=== PATIENT | female | born 1995 | race Caucasian/White ===

== ENCOUNTER 2017-01-05 15:10 | Emergency (ER) | payer BC ==
[2017-01-05] MEDS ORDERED: OXYMETAZOLINE 0.05% NASAL 15 SPRAYS/15 ML BTL NASAL ONE (15:33)
[2017-01-05] MEDS ORDERED: SILVER NITRATE 1 APP APP TOPICAL ONE (15:57)
--- NOTE | 2017-01-05 16:05 | ER NURSING DOCUMENTATION ---
Nurse's Notes [facility] Name:Delfina Monaco Age:21 yrs Sex:Female :1995 Arrival Date:01/05/2017 Time:15:10 Bed2 Private MD: Diagnosis:Epistaxis - Nose Bleed Presentation: 01/05 15:12 Acuity: NASREEN 4 rh 15:21 Presenting complaint: Patient states: Pt has nosebleed from both nares. 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 Pt has frequent nosebleeds, arrived here from [place] yesterday. Transition of care: Home. 15:21 Method Of Arrival: Walk In Triage Assessment: 15:23 General: Appears in no apparent distress, Behavior is cooperative. Pain: Denies pain. rh EENT: Nares with bleeding noted bilaterally. Neuro: Level of Consciousness is awake, alert, obeys commands, Denies dizziness. Historical: - Allergies: No known drug Allergies; - Home Meds: 1. CONTROL - PMHx: NOSEBLEEDS; - PSHx: None; - Tetanus: < 10 years. - Ebola Screening: : Patient negative for fever greater than or equal to 101.5 degrees Fahrenheit, and additional compatible Ebola Virus Disease symptoms. - Immunization history: Flu Vaccine < 1 year. - Social history: Smoking status: Patient states was never smoker of tobacco. Screenin:23 Infectious Disease Risk None. Abuse screen: Denies threats or abuse. Denies injuries rh from another. Nutritional screening: No deficits noted. Assessment: 15:23 See Triage Assessment done by same RN. rh Vital Signs: 15:23 BP 124 / 73; Pulse 89; Resp 15; Temp 98.0(TE); Pulse Ox 95% on R/A; Weight 74.84 kg; rh Height 5 ft. 8 in. (172.72 cm); Pain 0/10; 15:23 Body Mass Index 25.09 (74.84 kg, 172.72 cm) rh ED Course: 15:12 Patient arrived in ED. ds 15:12 Triage completed. rh 15:15 Nosebleed Care Nasal Clamp Applied. rh 15:19 Hallie Camacho is Primary Nurse. rh 15:23 Notified ED Physician of patient's arrival and chief complaint. Dr. Cross notified. rh 15:23 Valuables Remains with patient Patient has correct armband on for positive rh identification. Bed in low position. Call light in reach. 15:24 Andrea Cross MD is Attending Physician. anna Administered Medications: 15:21 Drug: Afrin Drops (0.05 %) 1 sprays; Route: Intranasal; Site: both nares; rh 16:04 Follow up: Response: No adverse reaction rh 15:40 Drug: Silver Nitrate Applicators 1 application; Route: Topical; Site: affected area; rh 16:04 Follow up: Response: No adverse reaction rh Outcome: 15:56 Discharge ordered by . anna 16:03 Discharged to home ambulatory. rh 16:03 Condition: improved 16:03 Discharge instructions given to patient, Instructed on discharge instructions, follow up and referral plans. 16:04 Patient left the ED. rh Signatures: Xenia Scott, Jed Reg Andrea Mason MD MD jm Hofsess, Rachel rh
--- NOTE | 2017-01-05 16:05 | ER PHYSICIAN DOCUMENTATION ---
Physician Documentation [facility] Name:Delfina Monaco Age:21 yrs Sex:Female :1995 Arrival Date:01/05/2017 Time:15:10 Bed2 Private MD: Andrea Trujillo Disposition: 01/05/17 15:56 Discharged to Home/Self Care. Impression: Epistaxis - Nose Bleed. - Condition is Good. - Discharge Instructions: EPISTAXIS (Adult). - Medical Reconciliation form form. - Follow up: Private Physician; When: As needed; Reason: Continuance of care. - Problem is new. - Symptoms have improved. HPI: 01/05 15:26 This 21 yrs old Female presents to ER via Walk In with complaints of Nose jm Bleed. 15:26 The patient presents with a nose bleed, occurred dry air, spontaneously, that is small jm amount causative factors include: previous HX of nosebleeds. Onset: The symptom(s)/episode began/occurred just prior to arrival. The patient has experienced similar episodes in the past, today's symptoms are similar, to previous nose bleeds at altitude. . Historical: - Allergies: No known drug Allergies; - Home Meds: 1. CONTROL - PMHx: NOSEBLEEDS; - PSHx: None; - Tetanus: < 10 years. - Ebola Screening: : Patient negative for fever greater than or equal to 101.5 degrees Fahrenheit, and additional compatible Ebola Virus Disease symptoms. - Immunization history: Flu Vaccine < 1 year. - Social history: Smoking status: Patient states was never smoker of tobacco. ROS: 15:33 Constitutional: Negative for fatigue, malaise. jm 15:33 ENT: Positive for nose bleed. 15:33 Abdomen/GI: Negative for nausea, hematemesis. 15:33 Neuro: Negative for dizziness. 15:33 All other systems are negative. Exam: 15:33 Constitutional: The patient appears alert, awake. jm 15:33 Cardiovascular: Rate: normal, Rhythm: regular. 15:33 Neuro: Mentation: is normal, Gait: is steady. 15:33 Psych: Behavior/mood is pleasant, cooperative, Affect is calm. Vital Signs: 15:23 BP 124 / 73; Pulse 89; Resp 15; Temp 98.0(TE); Pulse Ox 95% on R/A; Weight 74.84 kg; rh Height 5 ft. 8 in. (172.72 cm); Pain 0/10; 15:23 Body Mass Index 25.09 (74.84 kg, 172.72 cm) Procedures: 15:48 Epistaxis treatment: A small amount of bleeding noted from Treated using Oxymetazoline jm sprays, cauterization, silver nitrate, nasal clamp, Bleeding stopped. MDM: 15:24 Patient medically screened. 15:48 Differential diagnosis: spontaneous epistaxis. Data reviewed: vital signs, nurses notes, and as a result, I will discharge patient. Counseling: I had a detailed discussion with the patient and/or guardian regarding: the historical points, exam findings, and any diagnostic results supporting the discharge/admit diagnosis, the need for outpatient follow up, with the patient's primary care provider, an ENT specialist. Dispensed Medications: 15:21 Drug: Afrin Drops (0.05 %) 1 sprays; Route: Intranasal; Site: both nares; rh 16:04 Follow up: Response: No adverse reaction 15:40 Drug: Silver Nitrate Applicators 1 application; Route: Topical; Site: affected area; rh 16:04 Follow up: Response: No adverse reaction rh Signatures: Andrea Cross MD MD jm Hofsess, Rachel
== END 2017-01-05 16:05 | disposition home or self-care (01) ==
LOC: ER 15:10
DX: R04.0 Epistaxis (principal)
CPT/HCPCS: 30901; 99283